=== PATIENT | female | born 1940 | race Caucasian/White ===

== ENCOUNTER 2020-03-17 00:47 | Emergency (ER) | payer MEDICARE, MEDICAID ==
[~2020-03-17] VITALS: Ht 157.5 cm; Wt 54.5 kg
[~2020-03-17 00:47] MED LIST: ASPI325T11 PO; ATOR20TA58 PO; CLOP75TA PO; CYCL10TA2 PO; DICL75TA PO; HYDR-2761 PO; HYDR-2769 PO; HYDR-3135 PO; HYDR-3165 PO; HYDROCODONE-IB1 EACH PO; IBUP200T58 PO; LOSA25TA54 PO; METO25TA4 PO; OLME1TAB27 PO
[2020-03-17 01:00] VITALS: BP 182/111
--- NOTE | 2020-03-17 01:17 | ED.ADGEN ---
Past Medical History Past Medical History: Cancer Past Surgical History: Hysterectomy Additional Past Surgical Histo: LEFT LEG SURGERY Smoking Status: Current Every Day Smoker Alcohol Use: None Drug Use: None General Adult EDM: Chief Complaint: FINGER INJURY HPI: HPI: Patient is an 79-year-old female who presents to the emergency room complaining of intermittent purple fingers. She states that her family made her come here because she had her both fingers. She denies any pain. She has been able to use her hands as normal. She denies any current shortness of breath or chest pain. She denies any injuries. She has never had anything like this previously. They did notice upon arrival that she had high blood pressure. Patient states that she saw her primary care doctor on and her blood pressure was high at that time as well. They have not made any changes to her medications. She denies any chest pain, shortness of breath, headache, numbness, weakness. Review of Systems: Review of Systems: Complete ROS is negative unless otherwise documented in HPI Allergies: Allergies: Allergies Coded Allergies Type Severity Reaction Last Updated Verified No Known Allergies Allergy Unknown 06/15/13 No Physical Exam: PE: General: Awake, alert, NAD. Well Nourished, well hydrated. Cooperative HEENT: Atraumatic, EOMI, PERRL, airway patent, moist oral mucosa Neck: Supple, trachea midline Respiratory: CTA bilaterally, normal effort, no wheezing/crackles CV: RRR, no murmur, cap refill <2, 2+ radial pulses bilaterally GI: Soft, nondistended, nontender, no masses MSK: No obvious deformities Skin: Warm, dry, mild purple discoloration to the tips of all 10 fingers, full range of motion of the hands, no tenderness Neuro: A&O x3, speech NL, sensory and motor grossly intact, no focal deficits Psych: Normal affect, normal mood, not suicidal or homicidal EKG: EKG: [] Heart Score: Risk Factors: Risk Factors: DM, Current or recent (<one month) smoker, HTN, HLP, family history of CAD, obesity. Risk Scores: Score 0 - 3: 2.5% MACE over next 6 weeks - Discharge Home Score 4 - 6: 20.3% MACE over next 6 weeks - Admit for Clinical Observation Score 7 - 10: 72.7% MACE over next 6 weeks - Early Invasive Strategies Radiology/Procedures: Radiology/Procedures: [] Course & Med Decision Making: Course & Med Decision Making Pertinent Labs and Imaging studies reviewed. (See chart for details) Patient is an 79-year-old female who presents to the emergency room complaining of mild purple discoloration to her fingers. Patient is a long-term smoker. Pulse ox was done in each finger and it was 95% or higher. Patient does not appear to be hypoxic at this time. She does not have any additional complaints. This could be late onset Raynaud's or due to her smoking. I have recommended that she stop smoking. Patient does not have any endorgan symptoms of high blood pressure. I have discussed with her that she should call her primary care physician tomorrow to see if they want to make adjustments to her blood pressure medication. Patient states that she will do this. I have discussed with her that if she starts to develop pain in the fingers with purple discoloration or develop shortness of breath she should return to the emergency room. Patient's test results and vitals while in the ED were fully reviewed and discussed with the patient. Patient is stable and at this time does not need admission to the hospital. We have discussed strict return precautions and the importance of following up with their Primary Care Physician. Patient stated understanding and was given an opportunity to ask any questions. Patient is in agreement with plan. Eliot Disclaimer: Eliot Disclaimer: This electronic medical record was generated, in whole or in part, using a voice recognition dictation system. Departure Departure Impression: Primary Impression: Discoloration of skin of finger Disposition: 01 DC HOME SELF CARE/HOMELESS Condition: STABLE Referrals: ANNALISE MORRISON MD (PCP) Patient Instructions: Raynaud's Syndrome Additional Instructions: We recommend that you stop smoking. If you develop pain in your fingers with purple discoloration please return to the Emergency Room. PRAMOD GARCIA MD Mar 17, 2020 01:17
== END 2020-03-17 01:05 | disposition home or self-care (01) ==
LOC: ER 00:47
DX: R23.8 Other skin changes (principal); F17.200 Nicotine dependence, unspecified, uncomplicated
CPT/HCPCS: 99281